=== PATIENT | male | born 1985 | race Caucasian/White ===

== ENCOUNTER 2017-04-02 22:03 | Emergency (ER) | payer OTHER ==
[2017-04-03 00:21] VITALS: BP 119/69
== END 2017-04-03 00:01 | disposition home or self-care (01) ==
LOC: ED 22:03
DX: M62.838 Other muscle spasm (principal); F17.210 Nicotine dependence, cigarettes, uncomplicated; R51 Headache
CPT/HCPCS: 20552; J2001